=== PATIENT | male | born 1965 | race Two or more races ===

== ENCOUNTER 2025-04-29 21:15 | Emergency (ER) | payer OTHER ==
[~2025-04-29] VITALS: Ht 172.7 cm; Wt 64.3 kg
[2025-04-29 21:17] VITALS: BP 170/90; PULSE 85; RESP 18; TEMP 97.6; O2SAT 95
--- NOTE | 2025-04-29 21:47 | ED.PDOC ---
Back pain HPI HPI Comments This is a 59-year-old male with known past medical history who presented with family to the ER for the evaluation of right knee pain after mechanical fall. Patient was carrying weight down stairs which was probably blocking his view, he landed on his right knee , 30 minutes back, reports pain at the medial aspect of the right knee, and swelling but no associated open wounds seen. His range of motion, active and passive or intact. No neurological deficits in the lower extremities. Denies smoking, drinking, taking any medication, denies allergies. Patient seen and examined in the ER. X-ray ordered. IM ketorolac moderate. Chief Complaint: Lower Extremity Time Seen by MD: 21:26 Reviewed Notes: Nurses Notes Allergies: Coded Allergies: No Known Drug Allergy (Verified Allergy, Unknown, 04/29/25) Information Source: Patient, Relative (Child) Mode of Arrival: Ambulatory Past Medical History PAST MEDICAL HISTORY: Denies Surgical History: Denies all surgeries Constitutional: denies: chills, diaphoresis, fatigue, fever, malaise, sweats, weakness, others EENTM: denies: blurred vision, double vision, ear bleeding, ear discharge, ear drainage, ear pain, ear ringing, eye pain, eye redness, hearing loss, mouth pain, mouth swelling, nasal discharge, nose bleeding, nose congestion, nose pain, photophobia, tearing, throat pain, throat swelling, voice changes, others Respiratory: denies: cough, hemoptysis, orthopnea, SOB at rest, shortness of breath, SOB with excertion, stridor, wheezing, others Cardiovascular: denies: chest pain, dizzy spells, diaphoresis, Dyspnea on exertion, edema, irregular heart beat, left arm pain, lightheadedness, palpitations, PND, syncope, others Gastrointestinal: denies: abdomen distended, abdominal pain, blood streaked bowels, constipated, diarrhea, dysphagia, difficulty swallowing, hematemesis, melena, nausea, poor appetite, poor fluid intake, rectal bleeding, rectal pain, vomiting, others Genitourinary: denies: burning, dysuria, flank pain, frequency, hematuria, incontinence, penile discharge, penile sore, pain, testicle pain, testicle swelling, urgency, others Neurological: denies: dizziness, fainting, headache, left sided numbness, left sided weakness, numbness, paresthesia, pre-existing deficit, right sided numbness, right sided weakness, seizure, speech problems, tingling, tremors, weakness, others Musculoskeletal: reports: joint pain, joint swelling Integumetry: denies: bruises, change in color, change in hair/nails, dryness, laceration, lesions, lumps, rash, wounds, others Allergic/Immunocompromised: denies: Difficulty Healing, Frequent Infections, Hives, Itching, others Hematologic/Lymphatic: denies: anemia, blood clots, easy bleeding, easy bruising, swollen glands, others Endocrine: denies: excessive hunger, excessive sweating, excessive thirst, excessive urination, flushing, intolerance to cold, intolerance to heat, unexplained weight gain, unexplained weight loss, others Psychiatric: denies: anxiety, bipolar disorder, depression, hopeless, panic disorder, schizophrenia, sleepless, suicidal, others Physical Exam General Appearance: No Apparent Distress, Normal HEENT: Normal ENT Inspection, Pharynx Normal, TMs Normal Neck: Full Range of Motion, Non-Tender, Normal, Normal Inspection Respiratory: Chest Non-Tender, Lungs Clear, No Accessory Muscle Use, No Respiratory Distress, Normal Breath Sounds Cardiovascular: No Edema, No JVD, No Murmur, No Gallop, Normal Peripheral Pulses, Regular Rate/Rhythm Breast Exam: Deferred Gastrointestinal: No Organomegaly, Non Tender, No Pulsatile Mass, Normal Bowel Sounds, Soft Genitalia: Deferred Pelvic: Deferred Rectal: Deferred Extremities: No calf tenderness, Normal capillary refill, Normal inspection, Normal range of motion, Non-tender, No pedal edema, Other (Right knee swollen, mildly tender, active and passive range of motion intact,, no medial or lateral movement of the knee noted.) Musculoskeletal : Apperance: Normal Neurologic: Alert, applications sales consultant II-XII nml as Tested, No Motor Deficits, Normal Affect, Normal Mood, No Sensory Deficits Cerebellar Function: Normal Reflexes: Normal Skin: Dry, Normal Color, Warm Lymphatic: No Adenopathy Was a procedure done? Was a procedure done?: No Back Pain Differential Dx Differential Diagnosis: Fracture, Musculoskeletal Pain Other Differential Diagnosis Acute patellar fracture/ligament tear/meniscus injury X-Ray, Labs, Meds, VS Vital Signs Date Time Temp Pulse Resp B/P (MAP) Pulse Ox O2 Delivery O2 Flow Rate FiO2 04/29/25 23:43 Room Air* 0 21 04/29/25 21:17 97.6 85 18 170/90 95 97.6 X-Ray, Labs, Meds, VS Comment X-ray right knee pending Images Reviewed?: Images reviewed and evaluated by me Time of 1ST Reevaluation: 23:00 Reevaluation 1ST: Improved Consultation: PCP Patient Education/Counseling: Diagnosis, Treatment, Prognosis, Need For Follow Up Family Education/Counseling: Diagnosis, Prognosis, Need For Follow Up SEPSIS Sepsis Screen Date sepsis recognized/suspect: Apr 29, 2025 Time Sepsis recognized/suspect: 2116 Recent Procedure: No On Antibiotic Therapy: No Respiratory Rate >20: No Heart Rate >90: No Temp<36 C (96.8 F) or >38.3 C: No SBP <90 or MAP <65 mmHG: No New Acute Mental Status Change: No Is the patient on CPAP, BIPAP,: No Physician Orders R Knee 2v Xray (04/29/25 21:46) Immobilize Injured Extremity (04/29/25 22:52) Vital Signs Date Time Temp Pulse Resp B/P (MAP) Pulse Ox O2 Delivery O2 Flow Rate FiO2 04/29/25 23:43 Room Air* 0 21 04/29/25 21:17 97.6 85 18 170/90 95 97.6 Departure 1 Departure Time of Disposition: 00:00 Impression: Primary Impression: Tibial plateau fracture, right Disposition: HOME / SELF CARE / HOMELESS Condition: Stable Additional Instructions: Right knee x-ray shows Minimally depressed fracture at the medial tibial plateau. Moderate sized joint effusion. Right knee immobilized, patient has crutches, no weight-bearing advised Expect 6-8 weeks of nonweightbearing before gradual loading, start physical th erapy as recommended to regain motion in his splint. Do not davis weight-bearing Follow up with primary care physician within the next 7 days, check your vitamin-D and calcium levels. He had a balance diet rich in calcium and protein to support bone holding, hourly smoking and alcohol. Do not put weight on the injured leg until cleared by your orthopedic surgeon. Use crutches, a wheelchair or walker as advised Keep the knee immobilized in the brace provided please to not remove with unless instructed. Elevate the leg on pillows when resting tone reduced swelling Apply ice to the knee for 15-20 minutes several times a day for the 1st few days. Always place a cloth between the ice and skin Take ibuprofen/Tylenol 3 times daily as needed for pain control Please go to the ER BP and noticed severe increasing pain or swelling not relieved by medication on rest, numbness, tingling, coldness in the toes or foot, worsening redness, discharge or fever, sudden difficulty moving dose or new weakness. Discharged With: Self, Relative Comments Attestation: I saw and evaluated the patient. I agree with the findings and plan of care as documented by the resident note. WALESKA LENTZ MD Critical Care Note Critical Care Time?: No Additional Comments Additional Comments Additional Comments Follow up with primary care physician within the next 5 days Ibuprofen 600 mg TID PRN Apply ice packs Avoid weight-bearing Please return to the ER in case of worsening swelling, redness, inability to move the knee or the leg Stability Stability form required: No Heart Score Heart Score: Heart Score Response (Comments) Value History N/A 0 EKG N/A 0 Age 45-64 1 Risk Factors No known risk factors 0 Troponin N/A 0 Total 1 KAMRON VELASCO RESIDENT Apr 29, 2025 21:47 WALESKA LENTZ MD Apr 30, 2025 05:59
[2025-04-29] MEDS: KETOROLAC TROMETH 30 MG/ML 1ML VIAL IM ONE (22:21)
--- NOTE | 2025-04-29 22:27 | DVH ---
CLINICAL INDICATION: trauma, pain, r/o fracture TECHNIQUE: XYXY R KNEE 2V XRAY Comparison: None FINDINGS/IMPRESSION: : Minimally depressed fracture at the medial tibial plateau. Moderate sized joint effusion.
== END 2025-04-29 23:46 | disposition home or self-care (01) ==
LOC: ER 21:15
DX: S82.141A Displaced bicondylar fracture of right tibia, initial encounter for closed fracture (principal); W19.XXXA Unspecified fall, initial encounter; Y93.89 Activity, other specified; Y92.89 Other specified places as the place of occurrence of the external cause; Y99.8 Other external cause status
CPT/HCPCS: 29505; 73560; J1885